=== PATIENT | female | born 1960 | race Caucasian/White ===

== ENCOUNTER → 2019-11-13 10:09 | Outpatient (BNVA) | payer OTHER, SELFPAY | PROVIDERS: Visit Provider Internal Medicine | DX: R76.8 Other specified abnormal immunological findings in serum (principal); Z79.899 Other long term (current) drug therapy; Z11.59 Encounter for screening for other viral diseases; Z11.1 Encounter for screening for respiratory tuberculosis; N18.9 Chronic kidney disease, unspecified; R06.02 Shortness of breath; Z87.891 Personal history of nicotine dependence; L29.9 Pruritus, unspecified; M25.50 Pain in unspecified joint | CPT/HCPCS: 36415; 99204 ==

== ENCOUNTER 2019-11-13 12:02 | Outpatient (CLI) | payer OTHER, SELFPAY ==
--- NOTE | 2019-11-13 12:10 | US_ITS ---
WS: [id number] ULTRASOUND RENAL TECHNIQUE: Ultrasound examination of both kidneys. CLINICAL INFORMATION: flank pain COMPARISON: None. FINDINGS: RIGHT: Right kidney is normal in size and appearance. Echogenicity: Normal. Cortical thickness: 1.4 cm; Normal. Hydronephrosis: None. Perinephric fluid: None. Right kidney measures: 9.1 cm x 5.5 cm x 4.6 cm. LEFT: Left kidney is normal in size and appearance. Echogenicity: Normal. Cortical thickness: 1.5 cm; Normal. Hydronephrosis: None. Perinephric fluid: None. Left kidney measures: 8.0 cm x 4.1 cm x 4.2 cm. Normal visualized aorta. Normal bladder US/US renal BI* [id number] IMPRESSION: Normal renal ultrasound. No hydronephrosis.
--- NOTE | 2019-11-13 12:10 | XRR_ITS ---
PROCEDURE INFORMATION: Exam: XR Chest, 1 View Exam date and time: 11/13/2019 12:11 PM Age: 59 years old Clinical indication: Shortness of breath; Additional info: SOB TECHNIQUE: Imaging protocol: XR of the chest Views: 1 view. COMPARISON: No relevant prior studies available. FINDINGS: Lungs: Unremarkable. No consolidation. Pleural space: Unremarkable. No pleural effusion. No pneumothorax. Heart/Mediastinum: Unremarkable. No cardiomegaly. Bones/joints: Unremarkable. XR/XR chest 1V portable [id number] IMPRESSION: No acute findings.
--- NOTE | 2019-11-13 12:10 | XRR_ITS ---
PROCEDURE INFORMATION: Exam: XR Bilateral Hips with Pelvis when Performed Exam date and time: 11/13/2019 12:42 PM Age: 59 years old Clinical indication: Hip pain; Bilateral; Additional info: Hip pain, si pain TECHNIQUE: Imaging protocol: XR bilateral hips with pelvis when performed. Views: 2 views. COMPARISON: No relevant prior studies available. FINDINGS: Bones/joints: Unremarkable. No acute fracture. Soft tissues: Unremarkable. XR/XR hip BI 3-4V wo/w pel [id number] IMPRESSION: No acute findings.
--- NOTE | 2019-11-13 12:10 | XRR_ITS ---
PROCEDURE INFORMATION: Exam: XR Right Hand Exam date and time: 11/13/2019 12:11 PM Age: 59 years old Clinical indication: Pain; Hand; Bilateral; Additional info: Hand pain TECHNIQUE: Imaging protocol: XR Right hand. Views: 1 or 2 views. COMPARISON: No relevant prior studies available. FINDINGS: Bones/joints: osseous structures of the hand are without an acute process. Distal radioulnar joint and radiocarpal joints grossly normal. Carpus without fracture. Metacarpals and phalangeal without fracture or dislocation. No erosive changes or periarticular calcifications. Soft tissues: See Bones/joints finding. XR/XR hand RT 2V [id number] IMPRESSION: No acute process. No significant degenerative changes .
--- NOTE | 2019-11-13 12:10 | XRR_ITS ---
PROCEDURE INFORMATION: Exam: XR Left Hand Exam date and time: 11/13/2019 12:11 PM Age: 59 years old Clinical indication: Pain; Hand; Bilateral; Additional info: Hand pain TECHNIQUE: Imaging protocol: XR Left hand. Views: 3 or more views. COMPARISON: No relevant prior studies available. FINDINGS: Bones/joints: osseous structures of the hand are without an acute process. Distal radioulnar joint and radiocarpal joints grossly normal. Carpus without fracture. Metacarpals and phalangeal without fracture or dislocation. No erosive changes or periarticular calcifications. Mild degenerative changes first carpometacarpal joint. Ulnar minus variance of approximately 3-4 mm Soft tissues: See Bones/joints finding. XR/XR hand LT 2V [id number] IMPRESSION: Mild degenerative changes. See above.
--- NOTE | 2019-11-13 12:10 | XRR_ITS ---
PROCEDURE INFORMATION: Exam: XR Lumbosacral Spine, 2 or 3 Views Exam date and time: 11/13/2019 12:40 PM Age: 59 years old Clinical indication: Low back pain; Additional info: Lower back pain TECHNIQUE: Imaging protocol: XR of the lumbosacral spine, 2 or 3 views. COMPARISON: No relevant prior studies available. FINDINGS: Vertebrae: Normal. No acute fracture. Normal alignment. Soft tissues: Unremarkable. XR/XR lumbar spine 2-3V* [id number] IMPRESSION: No acute findings.
== END 2019-11-13 12:03 | disposition home or self-care (01) ==
PROVIDERS: Visit Provider Internal Medicine
DX: M79.641 Pain in right hand (principal); M79.642 Pain in left hand; M25.551 Pain in right hip; M25.552 Pain in left hip; M54.5 Low back pain; R10.9 Unspecified abdominal pain; R06.02 Shortness of breath
CPT/HCPCS: 71045; 72100; 73120; 73521; 73522; 76770; 80053; 81003; 82306; 82550; 85025; 85651; 86140; 86431; 86480; 86704; 86706; 86803; 86812; 87340

== ENCOUNTER → 2019-11-30 09:45 | Outpatient (BNVA) | payer OTHER, SELFPAY | PROVIDERS: Visit Provider Internal Medicine | DX: R76.8 Other specified abnormal immunological findings in serum (principal); Z79.899 Other long term (current) drug therapy; Z87.2 Personal history of diseases of the skin and subcutaneous tissue; N18.9 Chronic kidney disease, unspecified; D75.89 Other specified diseases of blood and blood-forming organs; E55.9 Vitamin D deficiency, unspecified | CPT/HCPCS: 36415; 82550; 82784; 83516; 84443; 86812; 99214 ==